=== PATIENT | female | born 1965 ===

== ENCOUNTER 2018-03-18 07:51 | Emergency (ER) | payer OTHER ==
[2018-03-18 07:59] VITALS: BMI 32.8
[2018-03-18 08:00] VITALS: BP 113/77; PULSE 75; RESP 16; TEMP 98.4; O2SAT 100
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
== END 2018-03-18 11:08 | disposition home or self-care (01) ==
LOC: SUPCPDRO 07:51 → H.ER 07:51
DX: S29.011A Strain of muscle and tendon of front wall of thorax, initial encounter (principal); V43.62XA Car passenger injured in collision with other type car in traffic accident, initial encounter; I10 Essential (primary) hypertension
CPT/HCPCS: 71046; 96372; 99284; J1885

== ENCOUNTER 2018-04-04 10:24 | Emergency (ER) | payer OTHER ==
[2018-04-04 10:25] VITALS: BMI 32.8
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
[2018-04-04 14:21] VITALS: BP 132/78; PULSE 73; RESP 16; TEMP 98.1; O2SAT 99
== END 2018-04-04 14:21 | disposition home or self-care (01) ==
LOC: H.ER 10:24
DX: S13.4XXA Sprain of ligaments of cervical spine, initial encounter (principal); M54.5 Low back pain; I10 Essential (primary) hypertension
CPT/HCPCS: 72040; 72100; 81025; 96372; 99283; J1885